=== PATIENT | male | born 1985 | race African-American/Black ===

== ENCOUNTER 2016-08-09 08:47 | Emergency (ER) | payer MEDICAID ==
[~2016-08-09] VITALS: Ht 190.5 cm; Wt 113.5 kg
[~2016-08-09 08:47] MED LIST: BACT800T5 PO
[2016-08-09 08:49] VITALS: BP 165/97; PULSE 92; RESP 18; TEMP 98.1; O2SAT 99
--- NOTE | 2016-08-09 09:02 | PD ---
HPI Chief Complaint: Skin Problem Time Seen by Provider: 09:02 Travel History International Travel<30 days: No Contact w/Intl Traveler<30days: No Traveled to known affect area: No History of Present Illness HPI 31-year-old Afro-[place] male presents the emergency department abscess to the right medial buttock which is been present for the past several days and worsening. Patient denies any spontaneous drainage. He denies fever, chills, or other constitutional symptoms. No history of MRSA in the past. He is allergic to Chlorine. PFSH Past Medical History Medical History: Denies Significant Hx Gastrointestinal Disorders: Yes Tetanus Vaccination: < 5 Years Past Surgical History Surgical History: No Previous Surgery Other Surgery: Yes (COLONOSCOPY) Social History Alcohol Use: No Tobacco Use: Yes (2 BLACK & MILDS) Substance Use: No Allergies-Medications (Allergen,Severity, Reaction): Coded Allergies: Chlorine (Verified Allergy, Severe, 08/09/16) Reported Meds & Prescriptions Reported Meds & Active Scripts Active Keflex (Cephalexin) 500 Mg Cap 500 Mg PO Q8H Ibuprofen 600 Mg Tab 600 Mg PO Q6H PRN Bactrim DS (Sulfamethoxazole-Trimethoprim) 800-160 Mg Tab 1 Tab PO BID Acetaminophen Extra Strength (Acetaminophen) 500 Mg Cap 1,000 Mg PO Q6H PRN Review of Systems Except as stated in HPI: all other systems reviewed are Neg General / Constitutional: No: Fever Eyes: No: Visual changes HENT: No: Headaches Cardiovascular: No: Chest Pain or Discomfort Respiratory: No: Shortness of Breath Gastrointestinal: No: Abdominal Pain Genitourinary: No: Dysuria Musculoskeletal: No: Pain Skin: Positive Lesions (see history present illness.), No Rash Neurologic: No: Weakness Psychiatric: No: Depression Endocrine: No: Polydipsia Hematologic/Lymphatic: No: Easy Bruising Physical Exam Narrative GENERAL: Patient appears in moderate distress. SKIN: Warm and dry. Normal color. Normal turgor. Patient has a walnut sized tender indurated abscess to the right medial buttock with pointing present. No spontaneous drainage. No lymphangitis. HEAD: Atraumatic. Normocephalic. EYES: Pupils equal and round. No scleral icterus. No injection or drainage. ENT: No nasal bleeding or discharge. Mucous membranes pink and moist. Pharynx is clear. NECK: Trachea midline. Supple. CARDIOVASCULAR: Regular rate and rhythm. RESPIRATORY: No accessory muscle use. Clear to auscultation. Breath sounds equal bilaterally. MUSCULOSKELETAL: Extremities without clubbing, cyanosis, or edema. No obvious deformities. NEUROLOGICAL: Awake and alert. No obvious cranial nerve deficits. Motor grossly within normal limits. Five out of 5 muscle strength in the arms and legs. Normal speech. PSYCHIATRIC: Appropriate mood and affect; insight and judgment normal. Data Data Last Documented VS Vital Signs Date Time Temp Pulse Resp B/P Pulse Ox O2 Delivery O2 Flow Rate FiO2 08/09/16 08:49 98.1 92 18 165/97 99 Orders Lidocai-Epi 1%-1:100,000 Inj (Xylocaine- (08/09/16 09:15) Wound Culture And Gram Stain (08/09/16 09:02) MDM Medical Decision Making Medical Screen Exam Complete: Yes Emergency Medical Condition: Yes Differential Diagnosis Pilonidal cyst. Cellulitis. Abscess. MRSA. Narrative Course Patient is medically stable at time of exam. I&D of abscess of the right buttock is performed with large amount of pus drained and packing placed. See procedure note. Patient is discharged home on Keflex 500 mg 3 times a day for 7 days as well as Bactrim DS twice a day for 7 days. And ibuprofen 600 mg 4 times a day #40 as well as extra strength Tylenol 500 mg 2 every 6 hours when necessary #60. Wound instructions are reviewed with the patient. Patient is return in 2 days for wound check and packing removal. Procedures Procedure Narrative After the risks and benefits were discussed the following procedure was performed: INCISION AND DRAINAGE OF ABSCESS: The area was prepped and was sterilely draped. A subcutaneous wheal of 1 % Xylocaine with epi with a total number 4 mL was used to anesthetize the area. The area was properly anesthetized. A number 11 scalpel was used to make a 1-cm incision across the area of the abscess. Cultures were obtained. The abscess was drained an irrigated with normal saline. Quarter inch iodoform packing was placed in the wound. Sterile dressing applied. Patient advised to have packing removed in two days. Diagnosis Primary Impression: Abscess of buttock, right Referrals: Primary Care Physician Patient Instructions: Abscess Incision and Drainage (ED), General Instructions Additional Instructions: I&D of abscess of the right buttock is performed with large amount of pus drained and packing placed. See procedure note. Patient is discharged home on Keflex 500 mg 3 times a day for 7 days as well as Bactrim DS twice a day for 7 days. And ibuprofen 600 mg 4 times a day #40 as well as extra strength Tylenol 500 mg 2 every 6 hours when necessary #60. Wound instructions are reviewed with the patient. Patient is return in 2 days for wound check and packing removal. Med/Other Pt SpecificInfo: Prescription(s) given, Wound Care Scripts Cephalexin (Keflex)500 Mg [id number] Mg PO Q8H #21 CAP Prov:Oscar Ruvalcaba MD 08/09/16 Ibuprofen 600 Mg [id number] Mg PO Q6H PRN (Pain/Inflammation) #40 TAB Prov:Oscar Ruvalcaba MD 08/09/16 Sulfamethoxazole-Trimethoprim (Bactrim DS)800-160 Mg Tab1 Tab PO BID #14 TAB Prov:Oscar Ruvalcaba MD 08/09/16 Acetaminophen (Acetaminophen Extra Strength)500 Mg Cap1,000 Mg PO Q6H PRN (PAIN SCALE 4 TO 10) #60 CAP Ref 1 Prov:Oscar Ruvalcaba MD 08/09/16 Disposition: 01 DISCHARGE HOME Condition: Stable [place]es Aug 09, 2016 09:02
[2016-08-09] MEDS ORDERED: LIDOCAINE 1%/EPINEPHrine 1:100,000 SOLN 20 ML VIAL INFIL ONE (09:15)
[2016-08-09] MEDS ORDERED: IBUP-232 PO (10:00)
[2016-08-09] MEDS ORDERED: CEPH-460 PO (10:00)
[2016-08-09] MEDS ORDERED: EXTR500C PO (10:00)
[2016-08-09] MEDS ORDERED: BACT800T5 PO (10:00)
== END 2016-08-09 10:30 | disposition home or self-care (01) ==
LOC: NEPB 08:47
DX: L02.31 Cutaneous abscess of buttock (principal); Z72.0 Tobacco use
CPT/HCPCS: 10061; 86403; 87070; 87205